=== PATIENT | female | born 1935 | race African-American/Black ===

== ENCOUNTER 2022-03-09 09:42 | Observation (INO) ==
[2022-03-09 15:27] LABS: Basophils % 0.5 % (0.0-0.8); Eosinophils # 0.1 10*3/uL (0.0-0.87); Hematocrit 32.1 VOL% (35.7-47.0); Immature Granulocytes % 0.3 %; Immature Granulocytes Absolute 0.02 #; Lymphocytes # 1.5 10*3/uL (1.4-4.0); Lymphocytes % 24.2 % (21.3-54.2); Mean Corpuscular HGB Conc 31.2 GM/DL (32-36); Mean Corpuscular Volume 84.3 FL (87-102); Mean Platelet Volume 10.2 FL (9.6-12.0); Monocytes # 0.4 10*3/uL (0.11-0.8); Monocytes % 7.2 % (1.7-12.7); Neutrophils % 66.8 % (38.7-73.9); Platelet Count 211 T/CUMM (130-400); Red Blood Count 3.81 MC/CUMM (3.8-5.5); Red Cell Distribution Width 14.2 % (9.3-17.3)
[2022-03-09 15:49] LABS: Alanine Aminotransferase 15 U/L (13-56); Alkaline Phosphatase 49 U/L (45-117); Aspartate Amino Transferase 12 U/L (0-37); Bilirubin,Total < 0.39 MG/DL (0.20-1.00); Blood Urea Nitrogen 16 MG/DL (7-18); Calcium 9.1 MG/DL (8.5-10.1); Carbon Dioxide 31 MMOL/L (21-32); Chloride 106 MMOL/L (98-107); Estimated Glom Filtration Rate 70 ML/MIN; Glucose 141 MG/DL (74-106); Osmolality,Calculated 283.3 MOS/KG (273-304); Potassium 3.4 MMOL/L (3.5-5.1); Sodium 141 MMOL/L (136-145); Total Protein 7.1 G/DL (6.4-8.2)
[2022-03-09] MEDS ORDERED: LACTULOSE 20 GM/30 ML UDCUP PO PRN (18:01)
[2022-03-09] MEDS ORDERED: GLUCAGON 1 MG VIAL IM PRN (18:01)
[2022-03-09] MEDS ORDERED: ACETAMINOPHEN 325 MG TABLET PO PRN (18:01)
[2022-03-09] MEDS ORDERED: MORPHINE 2 MG/1 ML SYRINGE IV PRN (18:01)
[2022-03-09] MEDS ORDERED: ONDANSETRON 4 MG/2 ML VIAL IV PRN (18:01)
[2022-03-09] MEDS ORDERED: hydrALAZINE 20 MG/1 ML VIAL IV PRN (18:05)
[2022-03-09] MEDS ORDERED: DEXTROSE 10% 250 ML BAG IV PRN (18:07)
[2022-03-09 18:29] LABS: % Iron Saturation 17.7 % (18-50)
[2022-03-09] MEDS ORDERED: POTASSIUM CHLORIDE 20 MEQ TABLET PO ONE (18:30)
[2022-03-09] MEDS: SODIUM CHLORIDE 0.9% 1,000 ML IV SCH (18:38)
[2022-03-09 20:09] LABS: Folate > 24.00 NG/ML (5.38-24.0); Vitamin B12 1482 PG/ML (211-911)
[2022-03-09 20:13] LABS: PT Patient Result 10.7 SECS (10.5-12.0)
[2022-03-09] MEDS: DOCUSATE SODIUM 100 MG CAPSULE PO SCH (21:36)
[2022-03-10 05:14] LABS: Basophils % 0.5 % (0.0-0.8); Eosinophils # 0.2 10*3/uL (0.0-0.87); Eosinophils % 3.5 % (0.00-10.9); Hematocrit 29.7 VOL% (35.7-47.0); Immature Granulocytes % 0.3 %; Immature Granulocytes Absolute 0.02 #; Lymphocytes # 1.6 10*3/uL (1.4-4.0); Lymphocytes % 27.3 % (21.3-54.2); Mean Corpuscular HGB Conc 30.3 GM/DL (32-36); Mean Corpuscular Volume 85.1 FL (87-102); Mean Platelet Volume 10.4 FL (9.6-12.0); Monocytes # 0.5 10*3/uL (0.11-0.8); Neutrophils % 60.4 % (38.7-73.9); Platelet Count 180 T/CUMM (130-400); Red Blood Count 3.49 MC/CUMM (3.8-5.5); Red Cell Distribution Width 14.5 % (9.3-17.3); White Blood Count 5.8 T/CUMM (4-12)
[2022-03-10 05:27] LABS: Alanine Aminotransferase 12 U/L (13-56); Albumin 2.7 G/DL (3.4-5.0); Alkaline Phosphatase 44 U/L (45-117); Aspartate Amino Transferase 10 U/L (0-37); Bilirubin,Total < 0.39 MG/DL (0.20-1.00); Blood Urea Nitrogen 14 MG/DL (7-18); Calcium 9.1 MG/DL (8.5-10.1); Carbon Dioxide 31 MMOL/L (21-32); Chloride 108 MMOL/L (98-107); Cholesterol 176 MG/DL (50-200); Estimated Glom Filtration Rate 82 ML/MIN; Glucose 112 MG/DL (74-106); HDL Cholesterol 73 MG/DL (40-60); Osmolality,Calculated 284.1 MOS/KG (273-304); Potassium 3.8 MMOL/L (3.5-5.1); Risk Ratio 2.41; Sodium 142 MMOL/L (136-145); Total Protein 6.3 G/DL (6.4-8.2); Triglycerides 88 MG/DL (2-150); VLDL Cholesterol 17.6 MG/DL
[2022-03-10] MEDS: LEVOTHYROXINE 137 MCG TABLET PO SCH (05:48)
[2022-03-10] MEDS: SODIUM CHLORIDE 0.9% 1,000 ML IV SCH (08:17)
[2022-03-10] MEDS ORDERED: PANTOPRAZOLE 40 MG VIAL IV SCH (09:00)
[2022-03-10] MEDS: DOCUSATE SODIUM 100 MG CAPSULE PO SCH ×2 (09:59→20:31)
[2022-03-10] MEDS: PANTOPRAZOLE 40 MG VIAL IV SCH ×2 (09:59→20:32)
[2022-03-10] MEDS: POLYETHYLENE GLYCOL POWDER 17 GM PACK PO SCH ×2 (09:59→20:32)
[2022-03-10 13:11] LABS: Hematocrit 32.1 VOL% (35.7-47.0); Hemoglobin 9.7 GM/DL (12.0-16.0)
[2022-03-10 20:38] LABS: Hematocrit 28.5 VOL% (35.7-47.0); Hemoglobin 8.8 GM/DL (12.0-16.0)
[2022-03-10] MEDS ORDERED: LATANOPROST 0.005% OPH SOLN 2.5 ML BOTTLE BOTH EYES SCH (21:00)
[2022-03-10] MEDS ORDERED: DOCUSATE SODIUM 100 MG CAPSULE PO SCH (21:00)
[2022-03-11 05:30] LABS: Basophils % 0.6 % (0.0-0.8); Eosinophils # 0.2 10*3/uL (0.0-0.87); Eosinophils % 4.4 % (0.00-10.9); Hematocrit 28.2 VOL% (35.7-47.0); Hemoglobin 8.7 GM/DL (12.0-16.0); Immature Granulocytes % 0.4 %; Immature Granulocytes Absolute 0.02 #; Lymphocytes # 1.7 10*3/uL (1.4-4.0); Lymphocytes % 33.5 % (21.3-54.2); Mean Corpuscular HGB Conc 30.9 GM/DL (32-36); Mean Corpuscular Volume 84.4 FL (87-102); Mean Platelet Volume 9.9 FL (9.6-12.0); Monocytes # 0.4 10*3/uL (0.11-0.8); Monocytes % 8.7 % (1.7-12.7); Neutrophils % 52.4 % (38.7-73.9); Platelet Count 177 T/CUMM (130-400); Red Blood Count 3.34 MC/CUMM (3.8-5.5); Red Cell Distribution Width 14.3 % (9.3-17.3); White Blood Count 5.1 T/CUMM (4-12)
[2022-03-11] MEDS: LEVOTHYROXINE 137 MCG TABLET PO SCH (05:34)
[2022-03-11 05:49] LABS: Calcium 9.3 MG/DL (8.5-10.1); Osmolality,Calculated 285.8 MOS/KG (273-304); Potassium 4.1 MMOL/L (3.5-5.1)
[2022-03-11] MEDS ORDERED: FERROUS SULFATE 325 MG TABLET PO SCH (08:00)
[2022-03-11] MEDS: POLYETHYLENE GLYCOL POWDER 17 GM PACK PO SCH (08:56)
[2022-03-11] MEDS: PANTOPRAZOLE 40 MG VIAL IV SCH (08:56)
[2022-03-11] MEDS: DOCUSATE SODIUM 100 MG CAPSULE PO SCH (08:56)
[2022-03-11 11:51] VITALS: BP 120/53
== END 2022-03-11 12:05 | disposition home or self-care (01) ==
LOC: N.ED 09:42 → N.3E 09:42
PROVIDERS: ADMIT Internal Medicine; ATTEND Internal Medicine

== ENCOUNTER 2022-03-12 16:26 | Inpatient (IN) ==
[2022-03-12] MEDS ORDERED: ONDANSETRON 4 MG/2 ML VIAL IV STA (18:11)
[2022-03-12 18:48] LABS: Basophils % 0.3 % (0.0-0.8); Eosinophils % 0.3 % (0.00-10.9); Hematocrit 29.9 VOL% (35.7-47.0); Hemoglobin 9.2 GM/DL (12.0-16.0); Immature Granulocytes % 0.4 %; Immature Granulocytes Absolute 0.03 #; Lymphocytes # 0.9 10*3/uL (1.4-4.0); Lymphocytes % 12.6 % (21.3-54.2); Mean Corpuscular HGB Conc 30.8 GM/DL (32-36); Mean Corpuscular Volume 84.2 FL (87-102); Mean Platelet Volume 9.8 FL (9.6-12.0); Monocytes # 0.3 10*3/uL (0.11-0.8); Monocytes % 4.7 % (1.7-12.7); Neutrophils % 81.7 % (38.7-73.9); Platelet Count 171 T/CUMM (130-400); Red Blood Count 3.55 MC/CUMM (3.8-5.5); Red Cell Distribution Width 14.5 % (9.3-17.3); White Blood Count 6.8 T/CUMM (4-12)
[2022-03-12 18:58] LABS: INR 0.9; PT Patient Result 10.4 SECS (10.5-12.0); Partial Thromboplastin Time 22.9 SECS (23.8-32.1)
[2022-03-12 19:13] LABS: Alanine Aminotransferase 15 U/L (13-56); Alkaline Phosphatase 52 U/L (45-117); Aspartate Amino Transferase 12 U/L (0-37); Bilirubin,Total < 0.39 MG/DL (0.20-1.00); Blood Urea Nitrogen 14 MG/DL (7-18); Calcium 8.5 MG/DL (8.5-10.1); Carbon Dioxide 28 MMOL/L (21-32); Chloride 104 MMOL/L (98-107); Glucose 132 MG/DL (74-106); Osmolality,Calculated 279.5 MOS/KG (273-304); Potassium 3.5 MMOL/L (3.5-5.1); Sodium 139 MMOL/L (136-145); Total Protein 6.1 G/DL (6.4-8.2)
[2022-03-12] MEDS ORDERED: ACETAMINOPHEN 325 MG TABLET PO PRN (20:01)
[2022-03-12] MEDS ORDERED: MORPHINE 2 MG/1 ML SYRINGE IV PRN (20:01)
[2022-03-12] MEDS ORDERED: GLUCAGON 1 MG VIAL IM PRN (20:01)
[2022-03-12] MEDS ORDERED: DEXTROSE 10% 250 ML BAG IV PRN (20:32)
[2022-03-12] MEDS ORDERED: hydrALAZINE 20 MG/1 ML VIAL IV PRN (20:33)
[2022-03-12] MEDS: PANTOPRAZOLE 40 MG VIAL IV SCH (21:12)
[2022-03-12] MEDS: SODIUM CHLORIDE 0.9% 1,000 ML IV SCH (21:12)
[2022-03-12] MEDS: DOCUSATE SODIUM 100 MG CAPSULE PO SCH (22:32)
[2022-03-12] MEDS: POLYETHYLENE GLYCOL POWDER 17 GM PACK PO SCH (22:32)
[2022-03-12] MEDS: LATANOPROST 0.005% OPH SOLN 2.5 ML BOTTLE BOTH EYES SCH (22:33)
[2022-03-13 06:07] LABS: Basophils % 0.3 % (0.0-0.8); Eosinophils # 0.2 10*3/uL (0.0-0.87); Eosinophils % 2.8 % (0.00-10.9); Hematocrit 23.8 VOL% (35.7-47.0); Hemoglobin 7.4 GM/DL (12.0-16.0); Immature Granulocytes % 0.3 %; Immature Granulocytes Absolute 0.02 #; Lymphocytes # 1.7 10*3/uL (1.4-4.0); Lymphocytes % 28.6 % (21.3-54.2); Mean Corpuscular HGB Conc 31.1 GM/DL (32-36); Mean Platelet Volume 9.9 FL (9.6-12.0); Monocytes # 0.5 10*3/uL (0.11-0.8); Monocytes % 8.6 % (1.7-12.7); Neutrophils % 59.4 % (38.7-73.9); Platelet Count 170 T/CUMM (130-400); Red Cell Distribution Width 14.6 % (9.3-17.3); White Blood Count 5.8 T/CUMM (4-12)
[2022-03-13 06:15] LABS: Calcium 8.1 MG/DL (8.5-10.1); Osmolality,Calculated 285.8 MOS/KG (273-304); Potassium 3.4 MMOL/L (3.5-5.1)
[2022-03-13] MEDS: LEVOTHYROXINE 137 MCG TABLET PO SCH (06:25)
[2022-03-13] MEDS ORDERED: SODIUM CHLORIDE 0.9% 1,000 ML IV PRN (07:48)
[2022-03-13] MEDS: SODIUM CHLORIDE 0.9% 1,000 ML IV SCH (07:50)
[2022-03-13] MEDS: PANTOPRAZOLE 40 MG VIAL IV SCH ×2 (09:11→20:45)
[2022-03-13] MEDS: POTASSIUM CHLORIDE RIDER 10 MEQ/100 ML PREMIX IV SCH ×2 (09:12→17:15)
[2022-03-13] MEDS: INDAPAMIDE 2.5 MG TABLET PO SCH (09:46)
[2022-03-13] MEDS: FERROUS SULFATE 325 MG TABLET PO SCH ×2 (09:46→16:05)
[2022-03-13] MEDS: POLYETHYLENE GLYCOL POWDER 17 GM PACK PO SCH ×2 (09:47→20:45)
[2022-03-13 18:14] LABS: Hematocrit 28.1 VOL% (35.7-47.0)
[2022-03-13 18:19] LABS: Hemoglobin 9.2 GM/DL (12.0-16.0)
[2022-03-13] MEDS: DOCUSATE SODIUM 100 MG CAPSULE PO SCH (20:44)
[2022-03-13] MEDS: LATANOPROST 0.005% OPH SOLN 2.5 ML BOTTLE BOTH EYES SCH (20:45)
[2022-03-13 22:18] LABS: Hematocrit 28.3 VOL% (35.7-47.0); Hemoglobin 9.1 GM/DL (12.0-16.0)
[2022-03-14] MEDS: SODIUM CHLORIDE 0.9% 1,000 ML IV SCH ×3 (04:04→15:00)
[2022-03-14 05:55] LABS: Hematocrit 29.4 VOL% (35.7-47.0); Hemoglobin 9.3 GM/DL (12.0-16.0)
[2022-03-14] MEDS: LEVOTHYROXINE 137 MCG TABLET PO SCH (06:29)
[2022-03-14] MEDS: POLYETHYLENE GLYCOL POWDER 17 GM PACK PO SCH ×2 (08:28→21:01)
[2022-03-14] MEDS: FERROUS SULFATE 325 MG TABLET PO SCH ×2 (08:28→16:05)
[2022-03-14] MEDS: INDAPAMIDE 2.5 MG TABLET PO SCH (08:28)
[2022-03-14] MEDS: PANTOPRAZOLE 40 MG VIAL IV SCH ×2 (08:29→21:02)
[2022-03-14 08:42] LABS: Basophils % 0.5 % (0.0-0.8); Eosinophils # 0.2 10*3/uL (0.0-0.87); Eosinophils % 3.6 % (0.00-10.9); Hematocrit 30.4 VOL% (35.7-47.0); Hemoglobin 9.6 GM/DL (12.0-16.0); Immature Granulocytes % 0.9 %; Immature Granulocytes Absolute 0.05 #; Lymphocytes # 1.1 10*3/uL (1.4-4.0); Lymphocytes % 19.5 % (21.3-54.2); Mean Corpuscular HGB Conc 31.6 GM/DL (32-36); Mean Corpuscular Volume 85.2 FL (87-102); Mean Platelet Volume 10.1 FL (9.6-12.0); Monocytes # 0.4 10*3/uL (0.11-0.8); Neutrophils % 69.5 % (38.7-73.9); Platelet Count 184 T/CUMM (130-400); Red Blood Count 3.57 MC/CUMM (3.8-5.5); Red Cell Distribution Width 15.2 % (9.3-17.3); White Blood Count 5.9 T/CUMM (4-12)
[2022-03-14 08:58] LABS: Albumin 2.8 G/DL (3.4-5.0); Bilirubin,Total 0.7 MG/DL (0.20-1.00); Calcium 8.4 MG/DL (8.5-10.1); Potassium 3.5 MMOL/L (3.5-5.1); Total Protein 6.2 G/DL (6.4-8.2)
[2022-03-14 10:07] LABS: Hemoglobin 9.6 GM/DL (12.0-16.0)
[2022-03-14 16:08] LABS: Hematocrit 28.6 VOL% (35.7-47.0); Hemoglobin 8.9 GM/DL (12.0-16.0)
[2022-03-14] MEDS: DOCUSATE SODIUM 100 MG CAPSULE PO SCH (21:01)
[2022-03-14] MEDS: LATANOPROST 0.005% OPH SOLN 2.5 ML BOTTLE BOTH EYES SCH (21:02)
[2022-03-14 21:42] LABS: Hemoglobin 9.3 GM/DL (12.0-16.0)
[2022-03-15] MEDS: SODIUM CHLORIDE 0.9% 1,000 ML IV SCH ×3 (05:15→17:54)
[2022-03-15 06:14] LABS: Basophils % 0.3 % (0.0-0.8); Eosinophils # 0.2 10*3/uL (0.0-0.87); Eosinophils % 2.6 % (0.00-10.9); Hematocrit 26.4 VOL% (35.7-47.0); Hemoglobin 8.2 GM/DL (12.0-16.0); Immature Granulocytes % 0.3 %; Immature Granulocytes Absolute 0.02 #; Lymphocytes # 2.1 10*3/uL (1.4-4.0); Lymphocytes % 27.8 % (21.3-54.2); Mean Corpuscular HGB Conc 31.1 GM/DL (32-36); Mean Corpuscular Volume 86.8 FL (87-102); Mean Platelet Volume 10.4 FL (9.6-12.0); Monocytes # 0.5 10*3/uL (0.11-0.8); Monocytes % 6.6 % (1.7-12.7); Neutrophils % 62.4 % (38.7-73.9); Platelet Count 187 T/CUMM (130-400); Red Blood Count 3.04 MC/CUMM (3.8-5.5); Red Cell Distribution Width 15.9 % (9.3-17.3); White Blood Count 7.6 T/CUMM (4-12)
[2022-03-15] MEDS: LEVOTHYROXINE 137 MCG TABLET PO SCH (06:27)
[2022-03-15 06:37] LABS: Albumin 2.8 G/DL (3.4-5.0); Bilirubin,Total 0.4 MG/DL (0.20-1.00); Calcium 8.4 MG/DL (8.5-10.1); Osmolality,Calculated 287.7 MOS/KG (273-304); Potassium 3.6 MMOL/L (3.5-5.1); Total Protein 6.2 G/DL (6.4-8.2)
[2022-03-15] MEDS: INDAPAMIDE 2.5 MG TABLET PO SCH (08:48)
[2022-03-15] MEDS: POLYETHYLENE GLYCOL POWDER 17 GM PACK PO SCH ×2 (08:49→20:55)
[2022-03-15] MEDS: FERROUS SULFATE 325 MG TABLET PO SCH ×2 (08:49→17:01)
[2022-03-15] MEDS: PANTOPRAZOLE 40 MG VIAL IV SCH (08:49)
[2022-03-15] MEDS ORDERED: BISACODYL 5 MG TABLET PO ONE (12:00)
[2022-03-15 16:44] LABS: Hematocrit 24.9 VOL% (35.7-47.0); Hemoglobin 7.7 GM/DL (12.0-16.0)
[2022-03-15] MEDS ORDERED: POLYETHYLENE GLYCOL POWDER 255 GM BOTTLE PO ONE (18:00)
[2022-03-15] MEDS: LATANOPROST 0.005% OPH SOLN 2.5 ML BOTTLE BOTH EYES SCH (20:55)
[2022-03-15] MEDS: DOCUSATE SODIUM 100 MG CAPSULE PO SCH (20:56)
[2022-03-15] MEDS ORDERED: MAGNESIUM CITRATE 300 ML BOTTLE PO ONE (21:00)
[2022-03-16 00:37] LABS: Hematocrit 24.3 VOL% (35.7-47.0); Hemoglobin 7.6 GM/DL (12.0-16.0)
[2022-03-16 05:10] LABS: Basophils % 0.4 % (0.0-0.8); Eosinophils # 0.1 10*3/uL (0.0-0.87); Eosinophils % 2.2 % (0.00-10.9); Hematocrit 23.5 VOL% (35.7-47.0); Hemoglobin 7.1 GM/DL (12.0-16.0); Immature Granulocytes % 0.5 %; Immature Granulocytes Absolute 0.03 #; Lymphocytes % 17.8 % (21.3-54.2); Mean Corpuscular HGB Conc 30.2 GM/DL (32-36); Mean Corpuscular Volume 90.4 FL (87-102); Mean Platelet Volume 10.4 FL (9.6-12.0); Monocytes # 0.3 10*3/uL (0.11-0.8); Monocytes % 5.8 % (1.7-12.7); Neutrophils % 73.3 % (38.7-73.9); Platelet Count 175 T/CUMM (130-400); Red Cell Distribution Width 16.3 % (9.3-17.3); White Blood Count 5.6 T/CUMM (4-12)
[2022-03-16 05:15] LABS: PT Patient Result 11.5 SECS (10.5-12.0)
[2022-03-16 05:30] LABS: Alanine Aminotransferase 15 U/L (13-56); Albumin 2.6 G/DL (3.4-5.0); Alkaline Phosphatase 42 U/L (45-117); Aspartate Amino Transferase 16 U/L (0-37); Bilirubin,Total < 0.39 MG/DL (0.20-1.00); Blood Urea Nitrogen 5 MG/DL (7-18); Calcium 8.3 MG/DL (8.5-10.1); Carbon Dioxide 23 MMOL/L (21-32); Chloride 114 MMOL/L (98-107); Glucose 113 MG/DL (74-106); Osmolality,Calculated 283.8 MOS/KG (273-304); Potassium 3.1 MMOL/L (3.5-5.1); Sodium 144 MMOL/L (136-145); Total Protein 5.6 G/DL (6.4-8.2)
[2022-03-16] MEDS: LEVOTHYROXINE 137 MCG TABLET PO SCH (07:06)
[2022-03-16] MEDS: SODIUM CHLORIDE 0.9% 1,000 ML IV SCH ×2 (07:07→21:30)
[2022-03-16] MEDS ORDERED: SODIUM CHLORIDE 0.9% 1,000 ML IV PRN ×2 (07:51→10:06)
[2022-03-16 08:13] LABS: Hemoglobin 6.5 GM/DL (12.0-16.0)
[2022-03-16] MEDS: FERROUS SULFATE 325 MG TABLET PO SCH ×2 (08:35→16:35)
[2022-03-16] MEDS: INDAPAMIDE 2.5 MG TABLET PO SCH (08:36)
[2022-03-16] MEDS: POLYETHYLENE GLYCOL POWDER 17 GM PACK PO SCH ×2 (08:37→20:53)
[2022-03-16] MEDS: LACTATED RINGERS 1,000 ML IV SCH (08:46)
[2022-03-16] MEDS ORDERED: propofoL 200 MG/20 ML VIAL IV ONE (08:57)
[2022-03-16] MEDS ORDERED: ETOMIDATE 20 MG/10 ML VIAL IV ONE (08:57)
[2022-03-16] MEDS ORDERED: LIDOCAINE 2% 5 ML VIAL ONE (08:57)
[2022-03-16] MEDS ORDERED: POTASSIUM CHLORIDE 20 MEQ TABLET PO ONE (10:30)
[2022-03-16] MEDS: DOCUSATE SODIUM 100 MG CAPSULE PO SCH (20:53)
[2022-03-16] MEDS: LATANOPROST 0.005% OPH SOLN 2.5 ML BOTTLE BOTH EYES SCH (20:53)
[2022-03-16] MEDS: PANTOPRAZOLE 40 MG TABLET PO SCH (20:53)
[2022-03-17 00:44] LABS: Basophils % 0.6 % (0.0-0.8); Eosinophils # 0.2 10*3/uL (0.0-0.87); Eosinophils % 3.1 % (0.00-10.9); Hematocrit 31.4 VOL% (35.7-47.0); Hemoglobin 10.2 GM/DL (12.0-16.0); Immature Granulocytes % 0.3 %; Immature Granulocytes Absolute 0.02 #; Lymphocytes # 2.1 10*3/uL (1.4-4.0); Lymphocytes % 29.6 % (21.3-54.2); Mean Corpuscular HGB Conc 32.5 GM/DL (32-36); Mean Platelet Volume 10.3 FL (9.6-12.0); Monocytes # 0.5 10*3/uL (0.11-0.8); Monocytes % 6.3 % (1.7-12.7); Neutrophils % 60.1 % (38.7-73.9); Platelet Count 163 T/CUMM (130-400); Red Blood Count 3.57 MC/CUMM (3.8-5.5); Red Cell Distribution Width 15.7 % (9.3-17.3); White Blood Count 7.1 T/CUMM (4-12)
[2022-03-17 01:02] LABS: Alanine Aminotransferase 17 U/L (13-56); Albumin 2.7 G/DL (3.4-5.0); Alkaline Phosphatase 45 U/L (45-117); Aspartate Amino Transferase 15 U/L (0-37); Bilirubin,Total < 0.39 MG/DL (0.20-1.00); Blood Urea Nitrogen 6 MG/DL (7-18); Calcium 8.2 MG/DL (8.5-10.1); Carbon Dioxide 25 MMOL/L (21-32); Chloride 110 MMOL/L (98-107); Glucose 97 MG/DL (74-106); Osmolality,Calculated 278.3 MOS/KG (273-304); Potassium 3.6 MMOL/L (3.5-5.1); Sodium 141 MMOL/L (136-145); Total Protein 6.1 G/DL (6.4-8.2)
[2022-03-17] MEDS: LEVOTHYROXINE 137 MCG TABLET PO SCH (06:29)
[2022-03-17] MEDS: PANTOPRAZOLE 40 MG TABLET PO SCH ×2 (10:12→21:01)
[2022-03-17] MEDS: INDAPAMIDE 2.5 MG TABLET PO SCH (10:12)
[2022-03-17] MEDS: POLYETHYLENE GLYCOL POWDER 17 GM PACK PO SCH ×2 (10:14→21:01)
[2022-03-17] MEDS: FERROUS SULFATE 325 MG TABLET PO SCH ×2 (10:14→16:58)
[2022-03-17] MEDS: LACTATED RINGERS 1,000 ML IV SCH (11:40)
[2022-03-17 15:20] LABS: Free T4 (Free Thyroxine) 0.95 NG/DL (0.76-1.46)
[2022-03-17] MEDS: DOCUSATE SODIUM 100 MG CAPSULE PO SCH (21:01)
[2022-03-17] MEDS: LATANOPROST 0.005% OPH SOLN 2.5 ML BOTTLE BOTH EYES SCH (21:02)
[2022-03-18] MEDS: LEVOTHYROXINE 137 MCG TABLET PO SCH (06:00)
[2022-03-18 06:07] LABS: Basophils % 0.3 % (0.0-0.8); Eosinophils # 0.2 10*3/uL (0.0-0.87); Eosinophils % 3.1 % (0.00-10.9); Hematocrit 28.4 VOL% (35.7-47.0); Hemoglobin 9.1 GM/DL (12.0-16.0); Immature Granulocytes % 0.3 %; Immature Granulocytes Absolute 0.02 #; Lymphocytes # 1.2 10*3/uL (1.4-4.0); Lymphocytes % 21.2 % (21.3-54.2); Mean Corpuscular Volume 88.2 FL (87-102); Mean Platelet Volume 10.7 FL (9.6-12.0); Monocytes # 0.4 10*3/uL (0.11-0.8); Monocytes % 7.6 % (1.7-12.7); Neutrophils % 67.5 % (38.7-73.9); Platelet Count 157 T/CUMM (130-400); Red Blood Count 3.22 MC/CUMM (3.8-5.5); Red Cell Distribution Width 16.4 % (9.3-17.3); White Blood Count 5.8 T/CUMM (4-12)
[2022-03-18 06:34] LABS: Alanine Aminotransferase 14 U/L (13-56); Albumin 2.4 G/DL (3.4-5.0); Alkaline Phosphatase 44 U/L (45-117); Aspartate Amino Transferase 16 U/L (0-37); Bilirubin,Total < 0.39 MG/DL (0.20-1.00); Blood Urea Nitrogen 7 MG/DL (7-18); Calcium 8.6 MG/DL (8.5-10.1); Carbon Dioxide 28 MMOL/L (21-32); Chloride 110 MMOL/L (98-107); Glucose 99 MG/DL (74-106); Potassium 3.4 MMOL/L (3.5-5.1); Sodium 143 MMOL/L (136-145); Total Protein 5.3 G/DL (6.4-8.2)
[2022-03-18] MEDS: POLYETHYLENE GLYCOL POWDER 17 GM PACK PO SCH (09:16)
[2022-03-18] MEDS: PANTOPRAZOLE 40 MG TABLET PO SCH (09:16)
[2022-03-18] MEDS: INDAPAMIDE 2.5 MG TABLET PO SCH (09:16)
[2022-03-18] MEDS: FERROUS SULFATE 325 MG TABLET PO SCH (09:17)
[2022-03-18 15:49] VITALS: BP 144/42
== END 2022-03-18 16:40 | disposition home or self-care (01) | DRG 378 ==
LOC: N.ED 16:26 → N.3E 16:26 → SUATTDRO 20:01 → N.3E 21:26
PROVIDERS: ADMIT Family Medicine; ATTEND Internal Medicine